=== PATIENT | female | born 1980 | race Caucasian/White ===

== ENCOUNTER 2016-07-16 10:07 | Emergency (ER) | payer OTHER ==
[~2016-07-16] VITALS: Ht 160 cm; Wt 103.7 kg
[2016-07-16 10:15] VITALS: TEMP 36.7; Ht 160 cm; Wt 103.7 kg
[2016-07-16] MEDS ORDERED: IBUPROFEN 600 MG TAB PO STA (10:29)
--- NOTE | 2016-07-16 10:40 | EMERGENCY ROOM VISIT NOTE ---
History Report prepared by Paulette: Selvin John Under the Supervision of: Dr. David Skelton M.D. First contact with patient: 10:24 Chief Complaint: HEADACHE Stated Complaint: HEADACHE,SHAKINESS History of Present Illness The patient is a 36 year old female who presents to the Emergency Room with complaints of a persistent headache that woke her up from sleep this morning. She rates the discomfort as a 7 out of 10 in severity. The patient also complains that the light is bothering her eyes. She states that she felt tingly on the right side of her body when she was waiting in the ED. Per patient's , the patient seemed to be disoriented this morning when she woke up. She has no history of migraines or headaches. The patient denies nausea, trauma , recent fever, or chills. The patient states that she did go out drinking last night and used cocaine. She states she felt fine last night and when she was going to bed. Source of History: patient Onset: this morning Position: head Symptom Intensity: 7/10 in severity Timing: other (persistent) Associated Symptoms: No chills, No fevers, No nausea Note: Other associated symptoms: disoriented, light bothering her eyes, tingling on right side of body Denies: trauma Review of Systems All systems have been listed, reviewed, and are negative other than those previously mentioned. Please see Additional Medical History Sheet. Past Medical & Surgical Medical Problems: (1) No pertinent past medical history Family History No pertinent family history Social History Smoking Status: Current Every Day Smoker Alcohol Use: occasionally Drug Use: cocaine Marital Status: Housing Status: lives with significant other Current/Historical Medications Scheduled PRN Acetamin/Butalbital/Caffeine (Fioricet), 1-2 TAB PO Q4 PRN for headache Allergies Coded Allergies: Meperidine (Unverified Allergy, Unknown, ., 07/16/16) Morphine (Unverified Allergy, Unknown, ., 07/16/16) Physical Exam Vital Signs Date Time Temp Pulse Resp B/P Pulse Ox O2 Delivery O2 Flow Rate FiO2 07/16/16 12:35 87 18 124/69 98 Room Air 07/16/16 11:31 95 18 132/77 99 Room Air 07/16/16 10:32 95 18 136/94 98 Room Air 07/16/16 10:15 36.7 111 17 132/89 99 Room Air Physical Exam GENERAL: Patient awake, alert, oriented x 3. Patient follows commands. Patient does not appear toxic. Patient is adequately hydrated and well- nourished. Patient appears in moderate distress. SKIN: No erythema, pallor, cyanosis or rash HEENT: Normal head, pupils equal, reactive to light and accommodation. Positive for photophobia. Slight discoloration under both eyes. Ears normal. Nose appears normal. Oral cavity and posterior pharynx appear normal. Neck: Without adenopathy, no neck vein distention. No meningeal findings. LUNGS: Clear to auscultation. No wheezes, no rales, no rhonchi. HEART: No murmurs. No gallops. No rubs ABDOMEN: No masses, no rebound, no hepatomegaly or splenomegaly.Obese. EXTREMITIES: No signs of trauma. No pedal or pretibial edema. No calf or thigh tenderness. Generalized sensitivity to both lower legs which is chronic. NEUROLOGIC: Cranial nerves II-XII within normal limits. No gross motor sensory function deficits. Medical Decision & Procedures ER Provider Diagnostic Interpretation: CT results are interpretations by the radiologist and per my review. CT OF THE HEAD WITHOUT CONTRAST CLINICAL HISTORY: Severe headache. COMPARISON STUDY: No previous studies for comparison. CT DOSE: 537.48 mGy.cm TECHNIQUE: Helical axial images of the head were obtained without IV contrast. Automated exposure control was utilized for the study. FINDINGS: No acute intracranial hemorrhage, midline shift or mass effect is present. Ventricular system is normal. Basilar cisterns are patent. There are no extra-axial collections. Mars-white differentiation is maintained. There are no findings to suggest acute dural sinus thrombosis or acute territorial infarct. There is no calvarial fracture. Visualized portions of the sinuses and mastoid air cells are clear. IMPRESSION: No acute intracranial findings. Electronically signed by: Edson Barros M.D. 07/16/2016 11:12 AM Dictated Date/Time: 07/16/2016 11:12 AM Laboratory Results 07/16/16 10:30 Red Blood Count 4.95, Mean Corpuscular Volume 90.3, Mean Corpuscular Hemoglobin 32.3, Mean Corpuscular Hemoglobin Concent 35.8, Mean Platelet Volume 10.8, Neutrophils (%) (Auto) 78.6, Lymphocytes (%) (Auto) 15.6, Monocytes (%) (Auto) 5.2, Eosinophils (%) (Auto) 0.1, Basophils (%) (Auto) 0.2, Neutrophils # (Auto) 12.76, Lymphocytes # (Auto) 2.53, Monocytes # (Auto) 0.84, Eosinophils # (Auto) 0.02, Basophils # (Auto) 0.04 07/16/16 10:30 Test 07/16/16 10:25 07/16/16 10:30 Urine Color YELLOW Urine Appearance CLEAR (CLEAR) Urine pH 6.5 (4.5-7.5) Urine Specific [place] 1.018 (1.000-1.030) Urine Protein NEG (NEG) Urine Glucose (UA) NEG (NEG) Urine Ketones NEG (NEG) Urine Occult Blood NEG (NEG) Urine Nitrite NEG (NEG) Urine Bilirubin NEG (NEG) Urine Urobilinogen NEG (NEG) Urine Leukocyte Esterase NEG (NEG) Urine Test NEG (NEG) White Blood Count 16.24 K/uL (4.8-10.8) Red Blood Count 4.95 M/uL (4.2-5.4) Hemoglobin 16.0 g/dL (12.0-16.0) Hematocrit 44.7 % (37-47) Mean Corpuscular Volume 90.3 fL (80-100) Mean Corpuscular Hemoglobin 32.3 pg (25-34) Mean Corpuscular Hemoglobin Concent 35.8 g/dl (32-36) Platelet Count 308 K/uL (130-400) Mean Platelet Volume 10.8 fL (7.4-10.4) Neutrophils (%) (Auto) 78.6 % Lymphocytes (%) (Auto) 15.6 % Monocytes (%) (Auto) 5.2 % Eosinophils (%) (Auto) 0.1 % Basophils (%) (Auto) 0.2 % Neutrophils # (Auto) 12.76 K/uL (1.4-6.5) Lymphocytes # (Auto) 2.53 K/uL (1.2-3.4) Monocytes # (Auto) 0.84 K/uL (0.11-0.59) Eosinophils # (Auto) 0.02 K/uL (0-0.5) Basophils # (Auto) 0.04 K/uL (0-0.2) RDW Standard Deviation 44.7 fL (36.4-46.3) RDW Coefficient of Variation 13.6 % (11.5-14.5) Immature Granulocyte % (Auto) 0.3 % Immature Granulocyte # (Auto) 0.05 K/uL (0.00-0.02) Anion Gap 8.0 mmol/L (3-11) Est Creatinine Clear Calc Drug Dose 96.5 ml/min Estimated GFR () 92.8 Estimated GFR (Non- 80.0 BUN/Creatinine Ratio 11.1 (10-20) Calcium Level 9.0 mg/dl (8.5-10.1) Total Bilirubin 0.3 mg/dl (0.2-1) Aspartate Amino Transf (AST/SGOT) 17 U/L (15-37) Alanine Aminotransferase (ALT/SGPT) 29 U/L (12-78) Alkaline Phosphatase 77 U/L (45-117) Total Protein 8.6 gm/dl (6.4-8.2) Albumin 4.3 gm/dl (3.4-5.0) Globulin 4.3 gm/dl (2.5-4.0) Albumin/Globulin Ratio 1.0 (0.9-2) Laboratory results as stated above per my review. Medications Administered Medications (Trade) Dose Ordered Sig/Coleen Route Start Time Stop Time Status Last Admin Dose Admin Ibuprofen (Motrin Tab) 600 mg NOW STAT PO 07/16/16 10:29 07/16/16 10:32 DC 07/16/16 10:51 600 MG Diphenhydramine HCl (Benadryl Inj) 25 mg NOW STAT IV 07/16/16 11:30 07/16/16 11:31 DC 07/16/16 11:40 25 MG Hydromorphone HCl (Dilaudid Inj) 0.5 mg Q1HWA PRN IV 07/16/16 11:30 07/16/16 12:56 DC 07/16/16 11:40 0.5 MG ECG Indication: other Rate (beats per minute): 94 Rhythm: normal sinus Findings: no acute ischemic change, prolonged QT, no ectopy ED Course 1024: Past medical records reviewed. The patient was evaluated in room B12. A complete history and physical examination was performed. 1029: Ordered Ibuprofen 600 mg PO. 1130: Ordered Dilaudid Inj 0.5 mg IV, Benadryl Inj 25 mg IV. 1302: Upon reevaluation, the patient appeared to have improvement of her symptoms. I discussed today's findings with her. She verbalized agreement of the treatment plan. The patient was discharged home. Medical Decision Differential diagnoses include acute subarachnoid bleed, TIA, CVA, migraine/ cluster/ tension/ sinus headache. The patient is here with a moderate to severe headache. The patient did snort cocaine last night. Multiple labs and imaging were obtained. White count is elevated but I do not believe this represents an acute bacterial infection. The patient does not have meningeal findings. I do not think she is a spinal tap. She does not appear to have encephalitis or meningitis. CAT scan does not reveal any believes. The patient had symptomatic relief here. She will be given prescription for Fioricet to take as needed. Impression Primary Impression: Headache Scribe Attestation The scribe's documentation has been prepared under my direction and personally reviewed by me in its entirety. I confirm that the note above accurately reflects all work, treatment, procedures, and medical decision making performed by me. Departure Information Dispostion Home / Self-Care Prescriptions Acetamin/Butalbital/Caffeine (FIORICET) 1 Ea Tab 1-2 TAB PO Q4 Y for headache, #12 TAB Prov: David Skelton M.D. 07/16/16 Referrals No Doctor, Assigned (PCP) Forms HOME CARE DOCUMENTATION FORM, IMPORTANT VISIT INFORMATION Patient Instructions [facility] Pain, [facility] Additional Instructions 1-2 Fioricet every 4 hours as needed for moderate to severe headache. Do not drive or operate machinery while taking Fioricet. REST Follow-up with your family physician within the next 10 days. Return here sooner if pain is getting worse.
[2016-07-16 10:52] LABS: HEMATOCRIT 44.7 % (37-47); MEAN CELL VOLUME 90.3 fL (80-100); MEAN CORPUSCULAR HEMOGLOBIN 32.3 pg (25-34); MEAN CORPUSCULAR HGB CONC 35.8 g/dl (32-36); MEAN PLATELET VOLUME 10.8 fL (7.4-10.4); PLATELET COUNT 308 K/uL (130-400); RED BLOOD COUNT 4.95 M/uL (4.2-5.4); WHITE BLOOD COUNT 16.24 K/uL (4.8-10.8)
[2016-07-16 10:58] LABS: URINE APPEARANCE CLEAR (CLEAR); URINE BILIRUBIN NEG (NEG); URINE COLOR YELLOW; URINE NITRITE NEG (NEG); URINE PH 6.5 (4.5-7.5); URINE SPECIFIC GRAVITY 1.018 (1.000-1.030); UROBILINOGEN NEG (NEG); ZZUR CULT IF INDIC CLEAN CATCH NO
[2016-07-16 11:01] LABS: MANUAL MICROSCOPIC REQUIRED? NO; REVIEW REQ? NO
[2016-07-16 11:08] LABS: BUN/CREATININE RATIO 11.1 (10-20); CREATININE 0.91 mg/dl (0.60-1.20); POTASSIUM 3.8 mmol/L (3.5-5.1)
--- NOTE | 2016-07-16 11:14 | DIAGNOSTIC IMAGING REPORT ---
CT OF THE HEAD WITHOUT CONTRAST CLINICAL HISTORY: Severe headache. COMPARISON STUDY: No previous studies for comparison. CT DOSE: 537.48 mGy.cm TECHNIQUE: Helical axial images of the head were obtained without IV contrast. Automated exposure control was utilized for the study. FINDINGS: No acute intracranial hemorrhage, midline shift or mass effect is present. Ventricular system is normal. Basilar cisterns are patent. There are no extra-axial collections. Mars-white differentiation is maintained. There are no findings to suggest acute dural sinus thrombosis or acute territorial infarct. There is no calvarial fracture. Visualized portions of the sinuses and mastoid air cells are clear. IMPRESSION: No acute intracranial findings. Electronically signed by: Edson Barros M.D. 07/16/2016 11:12 AM Dictated Date/Time: 07/16/2016 11:12 AM
[2016-07-16 11:28] LABS: BASO % 0.2 %; BASO ABS # 0.04 K/uL (0-0.2); COMPLETE YES; EOS % 0.1 %; IG% 0.3 %; LYMPH % 15.6 %; LYMPH ABS # 2.53 K/uL (1.2-3.4); MONO % 5.2 %; NEUT % 78.6 %
[2016-07-16] MEDS ORDERED: DiphenhydrAMINE HCL 50 MG/ML VIAL IV STA (11:30)
[2016-07-16] MEDS ORDERED: HYDROmorphone INJ 1 MG/ML SYR IV PRN (11:30)
[2016-07-16] MEDS ORDERED: FRCT/ PO (12:22)
[2016-07-16 12:35] VITALS: BP 124/69; PULSE 87; O2SAT 98
== END 2016-07-16 12:35 | disposition home or self-care (01) ==
LOC: C.EDB 10:09
DX: R51 Headache (principal); F17.200 Nicotine dependence, unspecified, uncomplicated; Z88.5 Allergy status to narcotic agent; Z88.8 Allergy status to other drugs, medicaments and biological substances

== ENCOUNTER 2016-10-12 12:52 | Emergency (ER) | payer OTHER ==
[~2016-10-12] VITALS: Ht 160 cm; Wt 105.0 kg
[~2016-10-12 12:52] MED LIST: FRCT/ PO
[2016-10-12 12:57] VITALS: TEMP 36.6; Ht 160 cm; Wt 105.0 kg
[2016-10-12] MEDS: ONDANSETRON INJ 2 MG/ML 2 ML VIAL IV STA (13:08)
[2016-10-12] MEDS ORDERED: KETOROLAC TROMETHAMINE 30 MG/ML VIAL IV STA (13:08)
[2016-10-12] MEDS ORDERED: SODIUM CHLORIDE 0.9% 1000ML 1,000 ML IV STA (13:08)
[2016-10-12 13:33] LABS: BASO % 0.2 %; BASO ABS # 0.02 K/uL (0-0.2); COMPLETE YES; HEMATOCRIT 44.7 % (37-47); IG% 0.3 %; LYMPH % 19.8 %; LYMPH ABS # 2.23 K/uL (1.2-3.4); MEAN CELL VOLUME 95.1 fL (80-100); MEAN CORPUSCULAR HEMOGLOBIN 32.8 pg (25-34); MEAN CORPUSCULAR HGB CONC 34.5 g/dl (32-36); MEAN PLATELET VOLUME 11.5 fL (7.4-10.4); MONO % 4.3 %; NEUT % 74.4 %; PLATELET COUNT 254 K/uL (130-400); WHITE BLOOD COUNT 11.29 K/uL (4.8-10.8)
[2016-10-12 13:48] LABS: URINE APPEARANCE CLEAR (CLEAR); URINE BILIRUBIN NEG (NEG); URINE COLOR YELLOW; URINE EPITHELIAL CELL AUTO >30 /lpf (0-5); URINE NITRITE NEG (NEG); URINE SPECIFIC GRAVITY 1.025 (1.000-1.030); UROBILINOGEN NEG (NEG)
[2016-10-12 13:51] LABS: BUN/CREATININE RATIO 16.5 (10-20); CALCIUM 8.6 mg/dl (8.5-10.1); CREATININE 0.89 mg/dl (0.60-1.20); POTASSIUM 3.8 mmol/L (3.5-5.1)
--- NOTE | 2016-10-12 13:53 | DIAGNOSTIC IMAGING REPORT ---
ABDOMEN AND PELVIS CT WITHOUT CONTRAST CT DOSE: 1094.37 mGycm HISTORY: Flank pain sent by [facility] for CT, right flank pain TECHNIQUE: Multiaxial CT images of the abdomen and pelvis were performed without contrast. COMPARISON STUDY: None. FINDINGS: Lung bases are clear. Liver spleen and pancreas are unremarkable. Kidneys are negative for calcification or hydronephrosis. Bowel pattern is considered nonobstructive. The appendix is normal. There is a 3.8 x 3.2 cm right ovarian cyst. There is trace amount of physiologic free fluid within the pelvic cul-de-sac. IMPRESSION: 1. Right ovarian cyst having a maximum dimension of 3.8 cm. 2. Study is otherwise negative. 3. Normal appendix. Unremarkable urinary tracts. Nonobstructive bowel pattern. Electronically signed by: Manuel Melendez M.D. 10/12/2016 1:52 PM Dictated Date/Time: 10/12/2016 1:49 PM
[2016-10-12 14:01] LABS: PREG INTERNAL NEGATIVE QC NEG CLEAR BACKGROUND; PREG INTERNAL POSITIVE QC POS CONTROL LINE
[2016-10-12 14:02] LABS: MANUAL MICROSCOPIC REQUIRED? NO; REVIEW REQ? NO
[2016-10-12] MEDS ORDERED: NITROFURANTOIN MONOHYDRATE 100 MG CAP PO STA (14:08)
[2016-10-12] MEDS ORDERED: NITR-5 PO (14:14)
[2016-10-12] MEDS ORDERED: PHEN-876 PO (14:14)
[2016-10-12 14:26] VITALS: BP 120/87; PULSE 66; O2SAT 100
--- NOTE | 2016-10-12 15:19 | EMERGENCY ROOM VISIT NOTE ---
History Report prepared by Paulette: Ekaterina Peterson Under the Supervision of: Dr. Raudel Ames D.O. First contact with patient: 13:04 Chief Complaint: ABDOMINAL PAIN Stated Complaint: PAIN IN R LOWER ABD, BLOOD IN URINE, R BACK PAIN Nursing Triage Summary: Right sided abd pain and it goes to the flank + hematuria and UTI per Azo test at home History of Present Illness The patient is a 36 year old female who presents to the Emergency Room with complaints of worsening abdominal pain starting a week ago. She currently rates her pain as a 7/10 in severity. The patient reports that she took an Gerson strips test a week ago that came back positive, so she started taking the Gerson pills. She states she also drank a lot of cranberry juice. She notes that the pain seemed to disappear, but reappeared two days ago. She complains of burning with urination, back pain, difficulty urinating, and nausea. The patient denies vomiting. The patient states that she went to [facility] this morning who sent her here because she had hematuria and her UTI test came back negative. She states that they believe it is kidney stones. She notes that she is sexually active and had intercourse this morning that was so painful, she had to stop. The patient denies vaginal bleeding, vaginal discharge, rashes, or STDs. She notes her LNMP was three weeks ago. She denies taking any Tylenol or Motrin, but notes a history of ovarian cysts. Source of History: patient Onset: a week ago Position: abdomen Symptom Intensity: 7/10 Timing: worsening Modifying Factors (Relieving): other (Gerson pills and cranberry juice) Associated Symptoms: + nausea, + back pain, + urinary symptoms, No vomiting , No rash Note: The patient complains of hematuria and pain with sexual intercourse. The patient denies vaginal bleeding, vaginal discharge, and any STDs. Review of Systems See HPI for pertinent positives & negatives. A total of 10 systems reviewed and were otherwise negative. Past Medical & Surgical Medical Problems: (1) No pertinent past medical history Surgical Problems: (1) History of shoulder surgery (2) S/P surgical manipulation of ankle joint Family History No pertinent family history Social History Smoking Status: Current Every Day Smoker Alcohol Use: occasionally Drug Use: cocaine Marital Status: Housing Status: lives with significant other Current/Historical Medications Scheduled Nitrofurantoin Monohyd Macrocr (Macrobid), 100 MG PO BID Scheduled PRN Phenazopyridine HCl (Pyridium), 200 MG PO TID PRN for Burning/Frequency w/ Urination Allergies Coded Allergies: Meperidine (Unverified Allergy, Unknown, ., 10/12/16) Morphine (Unverified Allergy, Unknown, ., 10/12/16) Physical Exam Vital Signs Date Time Temp Pulse Resp B/P (MAP) Pulse Ox O2 Delivery O2 Flow Rate FiO2 10/12/16 14:26 66 18 120/87 100 Room Air 10/12/16 12:57 36.6 63 16 114/67 97 Room Air Physical Exam GENERAL: Patient is awake, alert, and in no acute distress. Patient is resting comfortably and showing no signs of anxiety EYES: The conjunctivae are clear. The pupils are round and reactive. EARS, NOSE, MOUTH AND THROAT: The nose is without any evidence of any deformity. Mucous membranes are moist tongue is midline NECK: The neck is nontender and supple. RESPIRATORY: Normal respiratory effort is noted there is no evidence of wheezing rhonchi or rales CARDIOVASCULAR: Regular rate and rhythm noted there no murmurs rubs or gallops normal S1 normal S2 GASTROINTESTINAL: The abdomen is soft with mild tendereness in RLQ. No guarding or rigidity noted. Bowel sounds are present in all quadrants. PELVIS: The Pelvis is stable. No tenderness to palpation is noted. BACK: No midline tenderness or or step-off noted range of motion in flexion extension as well as rotation no signs of muscle spasm noted MUSCULOSKELETAL/EXTREMITIES: There is no evidence of gross deformity full range of motion is noted in the hips and shoulders SKIN: There is no obvious evidence of any rash. There are no petechiae, pallor or cyanosis noted. NEUROLOGIC: Patient is awake alert and oriented x3. Medical Decision & Procedures ER Provider Diagnostic Interpretation: Radiology results as stated below per my review and radiologist interpretation: ABDOMEN AND PELVIS CT WITHOUT CONTRAST CT DOSE: 1094.37 mGycm HISTORY: Flank pain sent by [facility] for CT, right flank pain TECHNIQUE: Multiaxial CT images of the abdomen and pelvis were performed without contrast. COMPARISON STUDY: None. FINDINGS: Lung bases are clear. Liver spleen and pancreas are unremarkable. Kidneys are negative for calcification or hydronephrosis. Bowel pattern is considered nonobstructive. The appendix is normal. There is a 3.8 x 3.2 cm right ovarian cyst. There is trace amount of physiologic free fluid within the pelvic cul-de-sac. IMPRESSION: 1. Right ovarian cyst having a maximum dimension of 3.8 cm. 2. Study is otherwise negative. 3. Normal appendix. Unremarkable urinary tracts. Nonobstructive bowel pattern. Electronically signed by: Manuel Melendez M.D. 10/12/2016 1:52 PM Dictated Date/Time: 10/12/2016 1:49 PM Laboratory Results 10/12/16 13:20 Red Blood Count 4.70, Mean Corpuscular Volume 95.1, Mean Corpuscular Hemoglobin 32.8, Mean Corpuscular Hemoglobin Concent 34.5, Mean Platelet Volume 11.5, Neutrophils (%) (Auto) 74.4, Lymphocytes (%) (Auto) 19.8, Monocytes (%) (Auto) 4.3, Eosinophils (%) (Auto) 1.0, Basophils (%) (Auto) 0.2, Neutrophils # (Auto) 8.42, Lymphocytes # (Auto) 2.23, Monocytes # (Auto) 0.48, Eosinophils # (Auto) 0.11, Basophils # (Auto) 0.02 10/12/16 13:20 Test 10/12/16 13:20 10/12/16 13:35 White Blood Count 11.29 K/uL (4.8-10.8) Red Blood Count 4.70 M/uL (4.2-5.4) Hemoglobin 15.4 g/dL (12.0-16.0) Hematocrit 44.7 % (37-47) Mean Corpuscular Volume 95.1 fL (80-100) Mean Corpuscular Hemoglobin 32.8 pg (25-34) Mean Corpuscular Hemoglobin Concent 34.5 g/dl (32-36) Platelet Count 254 K/uL (130-400) Mean Platelet Volume 11.5 fL (7.4-10.4) Neutrophils (%) (Auto) 74.4 % Lymphocytes (%) (Auto) 19.8 % Monocytes (%) (Auto) 4.3 % Eosinophils (%) (Auto) 1.0 % Basophils (%) (Auto) 0.2 % Neutrophils # (Auto) 8.42 K/uL (1.4-6.5) Lymphocytes # (Auto) 2.23 K/uL (1.2-3.4) Monocytes # (Auto) 0.48 K/uL (0.11-0.59) Eosinophils # (Auto) 0.11 K/uL (0-0.5) Basophils # (Auto) 0.02 K/uL (0-0.2) RDW Standard Deviation 47.2 fL (36.4-46.3) RDW Coefficient of Variation 13.5 % (11.5-14.5) Immature Granulocyte % (Auto) 0.3 % Immature Granulocyte # (Auto) 0.03 K/uL (0.00-0.02) Anion Gap 6.0 mmol/L (3-11) Est Creatinine Clear Calc Drug Dose 99.3 ml/min Estimated GFR () 95.3 Estimated GFR (Non- 82.2 BUN/Creatinine Ratio 16.5 (10-20) Calcium Level 8.6 mg/dl (8.5-10.1) Total Bilirubin 0.3 mg/dl (0.2-1) Direct Bilirubin 0.1 mg/dl (0-0.2) Aspartate Amino Transf (AST/SGOT) 14 U/L (15-37) Alanine Aminotransferase (ALT/SGPT) 27 U/L (12-78) Alkaline Phosphatase 69 U/L (45-117) Total Protein 7.1 gm/dl (6.4-8.2) Albumin 3.5 gm/dl (3.4-5.0) Lipase 140 U/L (73-393) Human Chorionic Gonadotropin, Qual NEG (NEG) Urine Color YELLOW Urine Appearance CLEAR (CLEAR) Urine pH 7.0 (4.5-7.5) Urine Specific [place] 1.025 (1.000-1.030) Urine Protein NEG (NEG) Urine Glucose (UA) NEG (NEG) Urine Ketones NEG (NEG) Urine Occult Blood 1+ (NEG) Urine Nitrite NEG (NEG) Urine Bilirubin NEG (NEG) Urine Urobilinogen NEG (NEG) Urine Leukocyte Esterase MODERATE (NEG) Urine WBC (Auto) >30 /hpf (0-5) Urine RBC (Auto) 5-10 /hpf (0-4) Urine Hyaline Casts (Auto) 10-30 /lpf (0-5) Urine Epithelial Cells (Auto) >30 /lpf (0-5) Urine Bacteria (Auto) 1+ (NEG) Laboratory results per my review. Medications Administered Medications (Trade) Dose Ordered Sig/Coleen Route Start Time Stop Time Status Last Admin Dose Admin Ketorolac Tromethamine (Toradol Inj) 30 mg NOW STAT IV 10/12/16 13:08 10/12/16 13:09 DC 10/12/16 13:30 30 MG Sodium Chloride 1,000 ml @ 999 mls/hr Q1H1M STAT IV 10/12/16 13:08 10/12/16 14:08 DC 10/12/16 13:30 999 MLS/HR Nitrofurantoin Macrocrystals (Macrobid Cap) 100 mg NOW STAT PO 10/12/16 14:08 10/12/16 14:10 DC 10/12/16 14:24 100 MG ED Course 1304: The patient was evaluated in room B10. A complete history and physical examination were performed. 1308: Ordered Zofran Inj 4 mg IV, NSS 1000 ml @ 999 mls/hr IV, Toradol Inj 30 mg IV. 1408: Ordered Macrobid Cap 100 mg PO. 1411: Upon reevaluation, the patient is resting comfortably. I discussed the results and treatment plan with her. She verbalized agreement of the treatment plan. The patient was discharged home. Medical Decision Medication Reconciliation: I attest that I have personally reviewed the patient' s current medications list. Blood pressure screening: Patient was found to have normal blood pressure on screening and does not require follow-up. Differential diagnosis: Etiologies such as appendicitis, diverticulitis, PUD, biliary pathology, UTI, pancreatitis, obstruction, mesenteric ischemia, aortic pathology, infections, inflammatory bowel disease, renal colic, as well as others were entertained. The patient is a 36-year-old female who presented to the emergency department for an evaluation of dysuria frequency and back pain. The patient was seen at an outside urgent care center and was sent to the emergency department for a CAT scan for possible kidney stone. The patient's history and physical exam appeared to be consistent with cystitis. She was treated with IV fluids and IV pain medication in the emergency department. She was reevaluated multiple times. I discussed the patient's laboratory and radiographic studies with her. She was found have signs of a over a cyst on CAT scan. I think this explains her right sided pain. She did not have a physical exam consistent with an acute surgical abdomen. She was encouraged to rest and avoid any strenuous activity. She was encouraged to continue all medications as prescribed and drink plenty clear liquids. She was also encouraged to follow-up with her family doctor soon as possible but return to the emergency department immediately if symptoms change worsen or the need arises. Impression Primary Impression: UTI (urinary tract infection) Additional Impressions: Cystitis Right ovarian cyst Scribe Attestation The scribe's documentation has been prepared under my direction and personally reviewed by me in its entirety. I confirm that the note above accurately reflects all work, treatment, procedures, and medical decision making performed by me. Departure Information Dispostion Home / Self-Care Prescriptions Phenazopyridine HCl (Pyridium) 200 Mg Tab 200 MG PO TID Y for Burning/Frequency w/Urination, #6 TAB Prov: Raudel Ames, DO 10/12/16 Nitrofurantoin Monohyd Macrocr (Macrobid) 100 Mg Cap 100 MG PO BID, #14 CAP Prov: Raudel Ames, DO 10/12/16 Referrals No Doctor, Assigned (PCP) Forms Call Back Authorization, HOME CARE DOCUMENTATION FORM, IMPORTANT VISIT INFORMATION Patient Instructions My [facility] Additional Instructions Continue all medications as prescribed. Continue using Motrin and Tylenol as directed for pain. Drink plenty clear liquids. Return to the emergency department immediately symptoms change worsen or the need arises. Problem Qualifiers Primary Impression: UTI (urinary tract infection) Urinary tract infection type: acute cystitis Hematuria presence: with hematuria Qualified Codes: N30.01 - Acute cystitis with hematuria
== END 2016-10-12 14:39 | disposition home or self-care (01) ==
LOC: C.EDB 12:53
DX: N30.01 Acute cystitis with hematuria (principal); N83.201 Unspecified ovarian cyst, right side; F17.200 Nicotine dependence, unspecified, uncomplicated; Z98.890 Other specified postprocedural states